=== PATIENT | female | born 1995 | race Caucasian/White ===

== ENCOUNTER 2018-12-16 21:25 | Inpatient (IN) | payer BC, MEDICAID ==
[~2018-12-16] VITALS: Ht 177.8 cm; Wt 78.2 kg
--- NOTE | 2018-12-16 21:41 | NUR ---
PT IN GOWN IN [facility]; AWAITING ERP AT THIS TIME. PT COMFORTABLE AND ATTACHED TO VS MACHINES. VSS. PT HAS CALL LIGHT WITHIN REACH AND VERBALIZES UNDERSTANDING OF POC.
[2018-12-16] MEDS ORDERED: ONDANSETRON 2MG/ML, 2ML IVPush PRN (23:00)
--- NOTE | 2018-12-16 23:00 | NUR ---
PT COMPLETED MRI SCREENING FORM. FORM FAXED TO MRI.
--- NOTE | 2018-12-16 23:01 | NUR ---
REPORT OF PT TO PEDRO GEE. ALL QUESTIONS ANSWERED.
[2018-12-16 23:13] VITALS: BP 116/65
[2018-12-16] MEDS: ACETAMINOPHEN 325 MG TABLET PO PRN (23:27)
[2018-12-17] MEDS ORDERED: GADOBUTROL 7.5 MMOL/7.5 ML PFS ONE (00:16)
[2018-12-17] MEDS ORDERED: ZOLPIDEM 5MG TABLET PO PRN (01:00)
[2018-12-17 01:11] VITALS: BP 113/65
[2018-12-17 05:41] LABS: BASOPHILS % (AUTO) 0 % (0-1); EOSINOPHILS % (AUTO) 0 % (1-7); LYMPHOCYTES # (AUTO) 0.75 x10^3/uL (1-3.4); LYMPHOCYTES % (AUTO) 9 % (22-44); MD NO; MEAN CORPUSCULAR HEMOGLOBIN 29.8 pg (27.0-34.8); MEAN CORPUSCULAR HGB CONC 33.8 g/dL (32.4-35.8); MEAN CORPUSCULAR VOLUME 88.2 fL (80-100); MEAN PLATELET VOLUME 9.3 fL (7.4-10.4); MONOCYTES # (AUTO) 0.18 x10^3/uL (0.2-0.8); MONOCYTES % (AUTO) 2 % (2-9); NEUTROPHILS # (AUTO) 7.16 x10^3/uL (1.8-6.8); NEUTROPHILS % (AUTO) 89 % (42-75); PLATELET COUNT 225 x10^3/uL (130-400); RED BLOOD COUNT 4.84 x10^6/uL (3.82-5.3); RED CELL DISTRIBUTION WIDTH 13.1 % (9.6-15.2)
[2018-12-17 05:49] LABS: ANION GAP 6 mmol/L (5-15); CALCIUM 8.8 mg/dL (8.5-10.1); CHLORIDE 110 mmol/L (98-107); CREATININE 0.84 mg/dL (0.55-1.02)
[2018-12-17 07:15] VITALS: BP 109/64
[2018-12-17] MEDS: ACETAMINOPHEN 325 MG TABLET PO PRN (08:15)
[2018-12-17 11:34] LABS: HCT (SEDRATE) 42.9 % (34.6-47.8)
[2018-12-17] MEDS ORDERED: DEXAMETHASONE 4 MG/ML, 1ML ONE (12:15)
[2018-12-17] MEDS ORDERED: DEXAMETHASONE 4 MG/ML IVPush ONE (12:30)
[2018-12-17] MEDS ORDERED: FAMOTIDINE 20 MG/2 ML IVPush ONE ×2 (12:30)
[2018-12-17] MEDS ORDERED: DEXAMETHASONE 4 MG/ML, 5ML IVPush ONE (12:30)
[2018-12-17 14:00] VITALS: BP 111/71
[2018-12-17] MEDS: IBUPROFEN 200 MG TABLET PO PRN (17:53)
[2018-12-17] MEDS ORDERED: DEXAMETHASONE 4 MG/ML, 1ML IVPush SCH (18:00)
[2018-12-17 19:20] VITALS: BP 102/56
[2018-12-17 21:00] LABS: MICROSCOPIC INDICATED
[2018-12-18 00:26] VITALS: BP 110/55
[2018-12-18 05:19] LABS: MEAN CORPUSCULAR HEMOGLOBIN 29.5 pg (27.0-34.8); MEAN CORPUSCULAR HGB CONC 33.3 g/dL (32.4-35.8); MEAN CORPUSCULAR VOLUME 88.5 fL (80-100); PLATELET COUNT 236 x10^3/uL (130-400); RED BLOOD COUNT 4.74 x10^6/uL (3.82-5.3); RED CELL DISTRIBUTION WIDTH 13.1 % (9.6-15.2)
[2018-12-18 05:27] LABS: CHLORIDE 112 mmol/L (98-107)
[2018-12-18 05:50] LABS: MD YES
[2018-12-18 05:54] LABS: <PLATELET ESTIMATE> ADEQUATE; <PLT MORPHOLOGY> NORMAL PLT MORPH; <RBC MORPHOLOGY> NORMAL; BAND#(MANUAL) 1.02 x10^3/uL; BANDS%(MANUAL) 6 % (0-7); LYMPH#(MANUAL) 0.34 x10^3/uL (1-3.4); LYMPHS% (MANUAL) 2 % (22-44); SEG#(MANUAL) 15.64 x10^3/uL (1.8-6.8); SEGS% (MANUAL) 92 % (42-75)
[2018-12-18 05:56] LABS: ALANINE AMINOTRANSFERASE 21 U/L (12-78); ALBUMIN 3.6 g/dL (3.4-5.0); ALKALINE PHOSPHATASE 58 U/L (45-117); ANION GAP 8 mmol/L (5-15); BILIRUBIN,TOTAL 0.2 mg/dL (0.2-1.0); CALCIUM 8.2 mg/dL (8.5-10.1); CREATININE 0.78 mg/dL (0.55-1.02); FOLATE LEVEL 9.2 ng/mL (3.1-17.5); TOTAL PROTEIN 7.2 g/dL (6.4-8.2)
[2018-12-18 06:46] VITALS: BP 97/53
[2018-12-18] MEDS ORDERED: LORazepam 2 MG/ML, 1ML IVPush ONE (10:30)
[2018-12-18] MEDS: IBUPROFEN 200 MG TABLET PO PRN (11:33)
[2018-12-18 12:42] VITALS: BP 116/72
[2018-12-18] MEDS ORDERED: KETOROLAC 30 MG/1 ML IVPush SCH (13:30)
[2018-12-18] MEDS ORDERED: FAMOTIDINE 20 MG/2 ML IVPush SCH (13:30)
[2018-12-18] MEDS ORDERED: METOCLOPRAMIDE 5 MG/ML, 2ML IVPush ONE (13:30)
[2018-12-18] MEDS ORDERED: GADOBUTROL 10 MMOL/10 ML PFS ONE (14:49)
[2018-12-18] MEDS: FLUCONAZOLE 10 MG/ML ORAL SUSP PO SCH (17:20)
[2018-12-18] MEDS: VALPROATE SODIUM 500 MG in DEXTROSE 5% 100 ML IV SCH ×2 (17:20→21:10)
[2018-12-18] MEDS: KETOROLAC 30 MG/1 ML IVPush SCH ×2 (18:31→23:07)
[2018-12-18 20:44] VITALS: BP 111/68
[2018-12-18] MEDS: FAMOTIDINE 20 MG TABLET PO SCH (21:10)
[2018-12-19 01:57] VITALS: BP 107/55
[2018-12-19] MEDS: VALPROATE SODIUM 500 MG in DEXTROSE 5% 100 ML IV SCH ×2 (05:21→10:22)
[2018-12-19] MEDS: KETOROLAC 30 MG/1 ML IVPush SCH ×2 (05:21→11:25)
[2018-12-19 07:45] VITALS: BP 100/60
[2018-12-19] MEDS: FAMOTIDINE 20 MG TABLET PO SCH (08:55)
[2018-12-19] MEDS: FLUCONAZOLE 10 MG/ML ORAL SUSP PO SCH (08:55)
[2018-12-19] MEDS ORDERED: FLUC10SU2 PO (08:57)
[2018-12-19] MEDS ORDERED: OMEP-110 PO (08:57)
[2018-12-19] MEDS ORDERED: IBUP-1484 PO (08:57)
[2018-12-19] MEDS: ACETAMINOPHEN 325 MG TABLET PO PRN (09:36)
[2018-12-19] MEDS ORDERED: PRED20TA PO (11:53)
[2018-12-19 14:33] LABS: ANA SCREEN NEGATIVE (Negative)
[2018-12-19 16:56] LABS: RAPID PLASMA REAGIN Nonreactive (Nonreactive)
[2018-12-23] MEDS ORDERED: IBUPROFEN 200 MG TABLET PO PRN (23:00)
== END 2018-12-19 12:07 | disposition home or self-care (01) | DRG 123 ==
LOC: ED 23:00 → EDIP 23:11 → 3NE 23:15 → OBSVTOIN 12-18 08:52 → DCLOUNGE 12-19 11:52
PROVIDERS: ADMIT Family Medicine; ATTEND Family Medicine
DX: H46.9 Unspecified optic neuritis (principal); H54.62 Unqualified visual loss, left eye, normal vision right eye; F12.90 Cannabis use, unspecified, uncomplicated; Z88.8 Allergy status to other drugs, medicaments and biological substances; F17.200 Nicotine dependence, unspecified, uncomplicated; N76.0 Acute vaginitis; Z80.8 Family history of malignant neoplasm of other organs or systems; Z82.61 Family history of arthritis
CPT/HCPCS: 36415; 99285; J3490; 70540; 70543; 70553; 72156; 72157; 80048; 80053; 81001; 82164; 82607; 82746; 83036; 83520; 83735; 84100; 85025; 85651; 86038; 86140; 86256; 86430; 86480; 86592; 86780; 96374; 96375; A9585; G0378; J1100; J1885; J2930; J2060; J2765